=== PATIENT | female | born 1980 | race Caucasian/White ===

== ENCOUNTER 2022-11-01 | Outpatient (REF) | payer MEDICAID, SELFPAY ==
[2022-11-01 20:46] LABS: Influenza A PCR NEGATIVE (Negative); Influenza B PCR NEGATIVE (Negative); Resp Syncy Virus RNA Qual PCR NEGATIVE (Negative); SARS COV2 PCR INHOUSE NEGATIVE (Negative)
== END 2022-11-01 00:01 | disposition home or self-care (01) ==
LOC: HO.HHCLNP
PROVIDERS: Visit Provider Emergency Medicine
DX: J45.20 Mild intermittent asthma, uncomplicated (principal); Z20.822 Contact with and (suspected) exposure to COVID-19
CPT/HCPCS: 0241U; 87070; 87147

== ENCOUNTER 2023-01-03 15:11 | Outpatient (REF) | payer MEDICAID, SELFPAY ==
--- NOTE | ~2023-01-03 | MM_ITS ---
EXAMINATION: MM SCREENING DIGITAL BREAST TOMOSYNTHESIS, BILATERAL CLINICAL INFORMATION: Screening. Asymptomatic. COMPARISON: Mammography: This is a baseline study. TECHNIQUE: Digital breast tomosynthesis is performed in both the craniocaudal and mediolateral oblique views along with computer-aided detection (CAD). Synthesized 2D images are generated from the tomosynthesis. FINDINGS: The breasts are heterogeneously dense, which may obscure small masses (ACR BI-RADS breast composition Category c). There are no significant masses, abnormal calcifications, or other abnormalities. MM/MM tomosynthesis screening BI IMPRESSION: No mammographic evidence of malignancy. ASSESSMENT: BI-RADS BI-RADS 1 - Negative RECOMMENDATION: Routine annual mammography screening. 1 year F/U This examination should not preclude the clinical evaluation of a suspicious palpable abnormality. This patient's information was entered into a reminder system with a target due date for their next mammogram.
== END 2023-01-03 15:12 | disposition home or self-care (01) ==
LOC: HO.MAMMO 15:11
PROVIDERS: PCP Internal Medicine; Visit Provider Internal Medicine
DX: Z12.31 Encounter for screening mammogram for malignant neoplasm of breast (principal)
CPT/HCPCS: 77063; 77067

== ENCOUNTER → 2023-01-03 15:15 | Outpatient (BNV) | payer MEDICAID, SELFPAY | PROVIDERS: PCP Internal Medicine; Visit Provider Radiology Diagnostic Radiology | DX: Z12.31 Encounter for screening mammogram for malignant neoplasm of breast (principal) | CPT/HCPCS: 77063; 77067 ==

== ENCOUNTER → 2023-08-04 11:15 | Outpatient (BNVA) | payer OTHER, SELFPAY | PROVIDERS: PCP Internal Medicine; Visit Provider Registered Nurse | DX: M79.641 Pain in right hand (principal); M79.644 Pain in right finger(s) | CPT/HCPCS: 29130; 73110; 73130; 99203 ==

== ENCOUNTER → 2023-08-09 15:32 | Outpatient (BNVA) | payer OTHER, SELFPAY | PROVIDERS: PCP Internal Medicine; Visit Provider Registered Nurse | DX: M79.641 Pain in right hand (principal) | CPT/HCPCS: 99213 ==

== ENCOUNTER → 2023-08-12 11:06 | Outpatient (BNVA) | payer OTHER, SELFPAY | PROVIDERS: PCP Internal Medicine; Visit Provider Registered Nurse | DX: M79.641 Pain in right hand (principal) | CPT/HCPCS: 99213 ==

== ENCOUNTER → 2023-08-23 11:29 | Outpatient (BNVA) | payer OTHER, SELFPAY | PROVIDERS: PCP Internal Medicine; Visit Provider Registered Nurse | DX: M79.641 Pain in right hand (principal); M79.644 Pain in right finger(s) | CPT/HCPCS: 99213 ==

== ENCOUNTER 2023-09-05 10:04 | Outpatient (REF) | payer MEDICAID, SELFPAY ==
--- NOTE | ~2023-09-05 | XR_ITS ---
EXAMINATION: XR CHEST CLINICAL INFORMATION: Improvement and cough COMPARISON: 03/12/2019 TECHNIQUE: 2 views of the chest were obtained. FINDINGS: No significant abnormality is noted involving the heart, lungs, mediastinum, bony thorax or soft tissues. XR/XR chest 2V IMPRESSION: Unremarkable examination.
== END 2023-09-05 10:05 | disposition home or self-care (01) ==
LOC: HO.HHCX 10:04
PROVIDERS: Visit Provider Internal Medicine
DX: J45.21 Mild intermittent asthma with (acute) exacerbation (principal)
CPT/HCPCS: 71046

== ENCOUNTER → 2023-09-06 08:01 | Outpatient (BNVA) | payer OTHER, SELFPAY | PROVIDERS: PCP Internal Medicine; Visit Provider Registered Nurse | DX: M79.644 Pain in right finger(s) (principal) | CPT/HCPCS: 99213 ==

== ENCOUNTER → 2023-09-21 09:40 | Outpatient (BNVA) | payer OTHER, SELFPAY | PROVIDERS: PCP Internal Medicine; Visit Provider Registered Nurse | DX: M79.644 Pain in right finger(s) (principal); T65.891A Toxic effect of other specified substances, accidental (unintentional), initial encounter; L23.1 Allergic contact dermatitis due to adhesives; Y92.538 Other ambulatory health services establishments as the place of occurrence of the external cause | CPT/HCPCS: 99213 ==

== ENCOUNTER 2023-09-27 09:30 | Outpatient (RCR) | payer OTHER, MEDICAID, SELFPAY | END 2023-10-07 09:44 | disposition home or self-care (01) | LOC: HO.OT 09:30 | PROVIDERS: PCP Internal Medicine; Visit Provider Registered Nurse | DX: S69.91XD Unspecified injury of right wrist, hand and finger(s), subsequent encounter (principal) | CPT/HCPCS: 97033; 97110; 97140; 97166 ==

== ENCOUNTER → 2023-10-12 09:40 | Outpatient (BNVA) | payer OTHER, SELFPAY | PROVIDERS: PCP Internal Medicine; Visit Provider Registered Nurse | DX: M79.644 Pain in right finger(s) (principal) | CPT/HCPCS: 99213 ==

== ENCOUNTER 2023-11-08 10:22 | Outpatient (RCR) | payer OTHER, MEDICAID, SELFPAY ==
--- NOTE | 2023-11-08 11:07 | MHC.OT.EP ---
[address] [phone] Occupational Therapy Plan of Care Patient Name: Karina Mahajan Date of Evaluation: 11/08/23 Diagnosis: R thumb injury Pain Location: Pain Score: 0 Pain Scale Used: Numeric (0 - 10) Aggravating Factors: no pain reported today Alleviating Factors: Assessment: Pt reports she has RTW Full duty and w/out restrictions. She denies pain in her thumb at rest or w/ use. She denied any pain w/ evaluations today; and reports she does not feel therapy is necessary at this time. We discussed modifications at work and she reported she has not had to and is performing her job the same as before the injury. Pt and I discussed options and she reports OT therapy is not necessary at this time. She has excellent ROM And staff anesthetist/pinch strength. Her DASH score was 15% today; but she reported there isn't anything I am really having difficulty doing . It is recommended we d/ charge pt; pt is doing well; she has RTW w/ out difficulty and denies any concerns w/ performance of work ADLs/IADLs. 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 Thank you once again for your referral.
== END 2023-11-08 11:08 | disposition home or self-care (01) ==
LOC: HO.OT 10:22
PROVIDERS: PCP Internal Medicine; Visit Provider Registered Nurse
DX: S60.931D Unspecified superficial injury of right thumb, subsequent encounter (principal)
CPT/HCPCS: 97165

== ENCOUNTER → 2023-11-08 10:47 | Outpatient (BNVA) | payer OTHER, SELFPAY | PROVIDERS: PCP Internal Medicine; Visit Provider Registered Nurse | DX: M79.641 Pain in right hand (principal) | CPT/HCPCS: 99213 ==